=== PATIENT | female | born 1935 | race Caucasian/White ===

== ENCOUNTER 2016-08-27 07:15 | Observation (INO) | payer MEDICARE ==
--- OUTSIDE RECORDS SUMMARY | 2016-08-27 07:52 | XMS REPORT | Continuity of Care Document ---
:1935 Author Organization [facility] ([facility]) Address [address] [place] [address] Phone [phone] Care Team Providers Name Role Phone Franco Leslie Primary Care Provider [phone] Source Comments This disclosure is being made pursuant to the Care Everywhere program, applicable federal and state laws, and may not contain all informaitonavailable regarding this patient.[facility] ([facility]) Active Allergies and Adverse Reactions Allergen Noted Date Severity Reactions Comments Nsaids (Non-Steroidal 11/11/2008 High Gastrointestinal bleed Stomach bleeding Anti-Inflammatory Drug) Current Medications Prescription Sig. Disp. Refills Start Date End Date Status levothyroxine (SYNTHROID) take 75 mcg by Active 75 mcg tablet mouth daily. oxybutynin (DITROPAN) 5 Take 5 mg by mouth Active mg tablet daily. metoPROLol (LOPRESSOR) 50 Take 50 mg by mouth Active mg tablet daily. diphenoxylate-atropine take 1 Tab by mouth Active (LOMOTIL) 2.5-0.025 mg 4 times daily as per tablet needed for Diarrhea. CALCIUM CARBONATE, take by mouth 3 Active [id number], (TUMS PO) times daily. OMEPRAZOLE (PRILOSEC PO) Take 40 mg by mouth Active 2 times daily. VIT A/VIT C/VIT Take 2 Tabs by Active E/ZINC/COPPER mouth. (PRESERVISION AREDS PO) lisinopril (PRINIVIL) 5 Take 5 mg by mouth Active mg tablet daily. CYANOCOBALAMIN, VITAMIN Take by mouth. Active B-12, (VITAMIN B-12 PO) artificial tears instill 1 Drop onto Active (ARTIFICIAL TEARS) Drop both eyes as ophthalmic solution needed. FLUTICASONE PROPIONATE Use by inhalation. Active (FLUTICASONE INH) CHOLESTYRAMINE, BULK, NA Active CHOLECALCIFEROL, VITAMIN Take by mouth. Active D3, (VITAMIN D3 PO) CETIRIZINE HCL (ZYRTEC Take by mouth. Active PO) Active Problems Problem Noted Date AMD (age related macular degeneration) 02/16/2009 Overview: Formatting of this note may be different from the original. Right Eye Left Eye Time To Recurrence: Time To Recurrence: Date VA (D cc) CMT Status Procedure VA (D cc) CMT Status Procedure Cmts 09/25/07 Avastin 10/29/07 Avastin 12/03/07 Avastin 02/05/08 Avastin 04/14/08 Avastin 02/16/2009 2030-1 20/30+3 09/24/2009 2025 -1 260 20/30 +1 305 Avastin # [id number] 10/21/2009 20/25 -1 262 20/40 +2 287 Avastin #[id number] 11/23/2009 252 296 Avastin #[id number] 01/19/2010 267 Avastin #[id number] 03/29/2010 2025 -2 270 20/25 -2+1 269 Avastin #[id number] 08/02/2010 20/30 -1 254 20/25 -2 271 no injection given OU 09/15/2010 20/40 254 Avastin #[id number] 2030 +2 271 10/28/2010 20/30-2 297 Avastin #[id number] 2025-2 266 12/23/2010 20/50 263 No injection 2025 270 Avastin #[id number] 01/14/2011 268 Avastin 271 Avastin 02/11/2011 278 Avastin 266 Avastin 03/31/11 20/40-2ph+2 257 Avastin #[id number] 25-3 ph-2 263 Avastin #[id number] 06/03/2011 20/40 +2 252 20/30 +2 262 Avastin 08/05/2011 20/50 265 20/40 Avastin #[id number] 10/19/2011 20/44 -2 254 20/28 -1 257 Avastin #[id number] 08/09/2012 20/50+2 20/50 Avastin [id number] 09/21/2012 20/35-2 20/35-1 Avastin [id number] 10/26/12 20/50+1 20/40-2+1 avastin [id number] 12/21/2012 20/40 -2 20/40 -2 Avastin [id number] 01/25/2013 20/50 20/40 -1/+1 Avastin [id number] 04/18/2013 20/44+2 cc 20/35+1 cc No injection Non-Ocular Medical History: 1. Thryoid 2. Seasonal allergies 3. Gastric reflux Immunizations Name Dates Previously Given Next Due Influenza, PF 03/10/2010 Pneumococcal, unspecified 03/29/2007 Social History Tobacco Use Types Packs/Day Years Used Date Never Smoker Smokeless Tobacco: Never Used Tobacco Cessation:Counseling Given: Yes Comments: Alcohol Use Drinks/Week oz/Week Comments No Last Filed Vital Signs Vital Sign Reading Time Taken Blood Pressure 133/71 03/10/2010 8:50 AM CDT Pulse 60 03/10/2010 8:50 AM CDT Temperature 36.5 C (97.7 F) 03/10/2010 8:50 AM CDT Respiratory Rate 20 03/10/2010 8:50 AM CDT Height 1.676 m (5' 6") 03/09/2010 12:30 PM CDT Weight 72.6 kg (160 lb 0.9 oz) 03/09/2010 12:30 PM CDT Body Mass Index 25.85 03/09/2010 12:30 PM CDT Oxygen Saturation 94% 03/10/2010 8:50 AM CDT Plan of Care Health Maintenance Due Date Last Done Comments Hepatitis B Vaccine (1 of 3 - Primary Series) 1935 Tdap Vaccine 02/12/1946 Td Vaccine 02/12/1954 Colonoscopy 02/12/1986 Zoster Vaccine 1996 Osteoporosis Screening (DXA Bone Density) 02/12/2001 Pneumococcal Vaccine (1 of 2 - PCV13) 02/12/2001 Lipid Disorder Screening 03/10/2015 03/10/2010 Influenza Vaccine: Seasonal (#1) 12/28/2015 03/10/2010 Results from Last 3 Months Not on file
[2016-08-27] MEDS ORDERED: MORPHINE SULFATE 2 MG/ML DISP.SYRIN IV ONE ×2 (08:03→10:30)
[2016-08-27] MEDS ORDERED: MORPHINE SULFATE 2 MG/ML DISP.SYRIN ONE ×2 (08:05→10:33)
--- NOTE | 2016-08-27 08:19 | ERNOTE ---
<Sanjay Khan - Last Filed: 08/27/16 11:23> Abdominal HPI - General Chief Complaint: Abdominal Pain Time Seen by Provider: 08/27/16 07:43 - Immun/Allergies/Home Medications Immunizatons: IMMUNIZATION HX Immunizations Up to Date Yes History of Influenza Vaccine Yes Hx Pneumococcal Vaccination Yes Allergies/Adverse Reactions: Allergies NSAIDS (Non-Steroidal Anti-Inflamma Allergy (Intermediate, Verified 08/27/16 15: 48) BLEEDING ULCERS lactose Allergy (Unknown, Verified 08/27/16 15:48) alendronate sodium [From Fosamax] Adverse Reaction (Mild, Verified 08/27/16 15: 48) REFLUX Cat/Feline Produc *RETIRED-12/31/12 [Cat/Feline Product Derivatives] Adverse Reaction (Mild, Verified 08/27/16 15:48) RHINITIS cefixime [From Suprax] Adverse Reaction (Mild, Verified 08/27/16 15:48) Diarrhea niacin Adverse Reaction (Mild, Verified 08/27/16 15:48) Other rash astemizole [From Hismanal] Adverse Reaction (Verified 08/27/16 15:48) JUST DOESNT WORK Home Medications: HOME MEDICATIONS Acetaminophen [Tylenol Extra Strength] 1,000 mg PO Q8H PRN 04/04/12 [Last Taken Unknown] Fluticasone Propionate [Flonase] 1 inh NS BID 04/04/12 [Last Taken Unknown] Levothyroxine Sodium 75 mcg PO DAILY 04/04/12 [Last Taken Unknown] Lisinopril 5 mg PO DAILY 04/04/12 [Last Taken Unknown] Metoprolol Succinate 50 mg PO HS 04/04/12 [Last Taken Unknown] Oxybutynin Chloride 5 mg PO DAILY 04/04/12 [Last Taken Unknown] Cholecalciferol (Vitamin D3) [Vitamin D3] 2,000 unit PO DAILY 07/29/13 [Last Taken Unknown] Cholestyramine (with Sugar) [Questran Packet] 4 gm PO DAILY PRN 07/29/13 [Last Taken Unknown] Famotidine [Pepcid AC] 20 mg PO BID 07/29/13 [Last Taken Unknown] Calcium Carbonate [Tums] 300 mg PO DAILY 10/06/15 [Last Taken Unknown] Cetirizine HCl [Zyrtec] 10 mg PO DAILY 10/06/15 [Last Taken Unknown] Vit A/Vit C/Vit E/Zinc/Copper [Preservision Areds Tablet] 2 each PO BID [Last Taken Unknown] ED Progress - Results and Orders Patient's Lab Results:: I have reviewed the patient's lab results. - Vital Signs Patient's Vital Signs:: I have reviewed the patient's vital signs. Vital Signs: Vital Signs 08/27/16 08/27/16 08/27/16 07:18 08:26 08:59 Temperature 36.8 C Pulse Rate 78 78 75 Respiratory 15 15 15 Rate Blood Pressure 137/68 111/59 117/53 O2 Sat by Pulse 96 94 96 Oximetry 08/27/16 08/27/16 09:37 10:50 Temperature 37.4 C Pulse Rate 73 83 Respiratory 16 15 Rate Blood Pressure 120/56 116/59 O2 Sat by Pulse 98 98 Oximetry - CT/Ultrasound CT/Ultrasound Narrative: The radiologist called me about her CT scan results. She has acute appendicitis. I discussed this with her and her, and will refer, with their ok. to Dr Gordon, general surgery. I called Dr. Gordon who said he would come to see the patient. - Progress/Reassessment Chief Complaint: Abdominal Pain Departure - Departure Clinical Impression: Appendicitis Qualifiers: Appendicitis type: acute appendicitis Acute appendicitis type: with localized peritonitis Qualified Code(s): K35.3 - Acute appendicitis with localized peritonitis Disposition: [facility] Condition: Good <Sravan Guerrero - Last Filed: 08/28/16 03:30> Abdominal HPI - Narrative Date of Service: 08/27/16 - General Source: patient, family - Immun/Allergies/Home Medications Immunizatons: IMMUNIZATION HX Immunizations Up to Date Yes History of Influenza Vaccine Yes Hx Pneumococcal Vaccination Yes - History of Present Illness Narrative: DIARRHEA AND LOWER ABDOMINAL CRAMPING SINCE YESTERDAY. NO VOMITING , NO FEVER BUT FELT COLD LAST NIGHT WITH NO SHIVERING. . NO UTI SX KNOWN. HER DIARRHEA ACTUALLY CONSISTS OF ONLY 1 LOOSE STOOL LAST NIGHT. THE ONLY DIFFERENT IS SHE HAD SOME BLACK JELLY BEANS THE NIGHT BEFORE. OTHER THAN THAT SHE ATE THE SAME EVERYONE AND HAS NO KNOWN CONTACTS. SHE STATES SHE IS LACTOSE INTOLERANCE AND HAS OCC. CRAMPS AND LOOSE STOOLS FROM THAT. SHE DID TAKE TWO IMMODIUM AFTER THE 1 LOOSE STOOL AND THE CRAMPS DID GET WORSE AFTERWARDS. SHE ATE HOT DOG AND CHIPS AT 1700 AFTER HER SYMPTOMS STARTED BUT NOTHING THIS A.M. Review of Systems - Review of Systems Constitutional: Present: See HPI EYE: Present: no symptoms reported ENT: Present: no symptoms reported Respiratory: Present: no symptoms reported Cardiology: Present: no symptoms reported Gastrointestinal/Abdominal: Present: See HPI Genitourinary: Present: no symptoms reported Musculoskeletal: Present: no symptoms reported Skin: Present: no symptoms reported Neurological: Present: no symptoms reported Endocrine: Present: no symptoms reported Hematologic/Lymphatic: Present: no symptoms reported Psych: Present: no symptoms reported All Other Systems: All systems neg except as marked - Patient's Past Medical History Patient History - Medical: Arthritis, GERD, Hypothyroidism, Other Patient History - Cardiac/Respiratory: Hyperlipidemia, Other Patient History - Cancer: No Hx of Cancer Patient History - Surgical Procedures: Cholecystectomy, Colonoscopy, D & C, EGD , Total Hip Replacement, Other Patient History - Other: None - Family History Father Family History - Medical: , No pertinent hx Family History - Cardiac/Respiratory: Myocardial Infarction Mother Family History - Medical: , No pertinent hx Family History - Cardiac/Respiratory: CVA/Stroke, Hypertension - Social History Living Situations: spouse Abuse History: No History of abuse Psych History: No pertinent hx Smoking Status: Never smoker Do you dip or chew tobacco: No Alcohol Use: none Drug Use: none - Immunizations Immunizations Up to Date: Yes Hx Pneumococcal Vaccination: Yes History of Influenza Vaccine: Yes Physical Exam - Physical Exam General Appearance: Present: wd/wn, alert, mild distress Respiratory: Present: no respiratory distress, normal breath sounds, no accessory muscle use, chest nontender, lungs clear Cardiovascular/Chest: Present: regular rate, rhythm, no murmur, normal peripheral pulses Peripheral Pulses: N=norm/S=strong/W=weak/B=bound/A=absent: Dorsalis-pedis (R): Normal, Dorsalis-pedis (L): Normal Gastrointestinal/Abdominal: Present: normal bowel sounds, nondistended, no organomegaly, tenderness - TO RIGHT LATERAL AND RIGHT LOWER ABD WITH WHAT FEELS LIKE A DISTENDED LOOP OF BOWEL WITH GUARDING AND MILD REBOUND IN RLQ. Extremity Exam: Present: normal inspection Neurological Exam: Present: alert, oriented Skin Exam: Present: normal color ED Progress - Results and Orders Results and Orders: LABS NOT DONE WHEN I SIGNED OFF TO DR MARTINEZ - Vital Signs Patient's Vital Signs:: I have reviewed the patient's vital signs. Vital Signs: Vital Signs 08/27/16 07:18 Temperature 36.8 C Pulse Rate 78 Respiratory 15 Rate Blood Pressure 137/68 O2 Sat by Pulse 96 Oximetry - Transfer of Care Physician Sign Out: Sravan Guerrero Receiving Physician: Sanjay Khan Pending Results: CT/MRI results, Labs, Pain-control Expected Disposition: Discharge
[2016-08-27] MEDS: NORMAL SALINE 1,000 ML IV PRN ×2 (08:20→08:25)
[2016-08-27 08:21] LABS: Hematocrit 41.6 % (37.0-47.0); Hemoglobin 13.6 gm/dL (12.5-16.0); Mean Cell Volume 87.8 fl (78-100); Mean Corpuscular Hemoglobin 28.7 pg (27-31); Mean Corpuscular Hgb Conc 32.7 g/dl (32-36); Mean Platelet Volume 9.5 fl (6.0-9.5); Neutrophil # 15.6 K/mm3 (1.3-6.0); Neutrophil % 82.5 % (42-75.0); Platelet Count 223 K/mm3 (150-450); Red Blood Count 4.74 M/mm3 (4.2-5.4); White Blood Count 18.9 K/mm3 (4.0-10.5)
[2016-08-27 08:34] LABS: Urine Bilirubin Negative (NEGATIVE); Urine Blood Negative /ul (NEGATIVE); Urine Ketone Negative (NEGATIVE); Urine Nitrite Negative (NEGATIVE); Urine Protein Negative (NEGATIVE); Urine Specific Gravity 1.015 SP.GR. (1.005-1.010); Urine Urobilinogen Normal (NORMAL)
[2016-08-27 08:43] LABS: Albumin * 3.4 gm/dl (3.4-5.0); Anion Gap 15.7 mmol/L (6.8-13.8); Bilirubin, Total 0.7 mg/dL (0.0-1.1); CRP 6.6 mg/dL (0.0-0.9); Ca. Corrected For Albumin 8.5 mg/dL (8.4-10.2); Calcium * 8.3 mg/dL (7.9-10.9); Carbon Dioxide 26.2 mmol/L (24-32.6); Potassium 3.9 mmol/L (3.4-4.6); Total Protein 6.9 gm/dL (6.2-8.2)
[2016-08-27 08:44] LABS: Urine Appearance Clear; Urine Bacteria None Seen; Urine Color Yellow; Urine RBC None Seen /hpf (0-5); Urine WBC None Seen /hpf (0-5)
[2016-08-27] MEDS ORDERED: DIATRIZOATE MEGLU/DIATRIZO SOD 30 ML BTL PO ONE (08:48)
[2016-08-27] MEDS ORDERED: DIATRIZOATE MEGLU/DIATRIZO SOD 30 ML BTL ONE (08:49)
[2016-08-27] MEDS ORDERED: CEFOXITIN SODIUM 2 GM in DEXTROSE 5 % IN WATER 100 ML IV PRN ×2 (12:00)
--- OUTSIDE RECORDS SUMMARY | 2016-08-27 12:01 | XMS REPORT | Continuity of Care Document ---
:1935 Author Organization [facility] ([facility]) Address [address] [place] [address] Phone [phone] Care Team Providers Name Role Phone Franco Leslie Primary Care Provider [phone] Source Comments This disclosure is being made pursuant to the Care Everywhere program, applicable federal and state laws, and may not contain all informaitonavailable regarding this patient.[facility] ([facility]) Active Allergies and Adverse Reactions Allergen Noted [...] CALCIUM CARBONATE, take by mouth 3 Active [id number], (TUMS PO) times daily. OMEPRAZOLE (PRILOSEC PO) [...] -1 260 20/30 +1 305 Avastin # [id number] 10/21/2009 20/25 -1 262 20/40 +2 287 Avastin #[id number] 11/23/2009 252 296 Avastin #[id number] 01/19/2010 267 Avastin #[id number] 03/29/2010 2025 -2 270 20/25 -2+1 269 Avastin #[id number] 08/02/2010 20/30 -1 254 20/25 -2 271 no injection given OU 09/15/2010 20/40 254 Avastin #[id number] 2030 +2 271 10/28/2010 20/30-2 297 Avastin #[id number] 2025-2 266 12/23/2010 20/50 263 No injection 2025 270 Avastin #[id number] 01/14/2011 268 Avastin 271 Avastin 02/11/2011 278 Avastin 266 Avastin 03/31/11 20/40-2ph+2 257 Avastin #[id number] 25-3 ph-2 263 Avastin #[id number] 06/03/2011 20/40 +2 252 20/30 +2 262 Avastin 08/05/2011 20/50 265 20/40 Avastin #[id number] 10/19/2011 20/44 -2 254 20/28 -1 257 Avastin #[id number] 08/09/2012 20/50+2 20/50 Avastin [id number] 09/21/2012 20/35-2 20/35-1 Avastin [id number] 10/26/12 20/50+1 20/40-2+1 avastin [id number] 12/21/2012 20/40 -2 20/40 -2 Avastin [id number] 01/25/2013 20/50 20/40 -1/+1 Avastin [id number] 04/18/2013 20/44+2 cc 20/35+1 cc No injection [...]
--- NOTE | 2016-08-27 12:13 | HP ---
Chief Complaint - Chief Complaint Date of Service: 08/27/16 Time of Service: 12:03 Chief Complaint: abdominal pain, acute appendicitis History of Present Illness: Started having cramping across lower abdomen and diarrhea yesterday afternoon. Pain continued and moved to [facility]. Slept in recliner. Presented to ER and has acute appendicitis on CT scan. - Patient's Past Medical History Patient History - Medical: Arthritis, GERD, Hypothyroidism, Other Patient History - Cardiac/Respiratory: Hyperlipidemia, Other Patient History - Cancer: No Hx of Cancer Patient History - Surgical Procedures: Cholecystectomy, Colonoscopy, D & C, EGD , Total Hip Replacement, Other Patient History - Other: None - Family History Father Family History - Medical: , No pertinent hx Family History - Cardiac/Respiratory: Myocardial Infarction Mother Family History - Medical: , No pertinent hx Family History - Cardiac/Respiratory: CVA/Stroke, Hypertension - Social History Living Situations: spouse Abuse History: No History of abuse Psych History: No pertinent hx Smoking Status: Never smoker Do you dip or chew tobacco: No Alcohol Use: none Drug Use: none - Immunizations Immunizations Up to Date: Yes Hx Pneumococcal Vaccination: Yes History of Influenza Vaccine: Yes Review Of Systems (GEN) - Review of Systems Generalized/Overall Review: Absent: Chills, Fever EENTM: Present: No Symptoms Reported Respiratory: Present: No Symptoms Reported Cardiac: Present: No Symptoms Reported. Absent: Chest Pain Abdominal: Present: Abdominal Pain, Other - hurts to move Genitourinary: Present: No Symptoms Reported Musculoskeletal: Present: No Symptoms Reported Neurological: Present: No Symptoms Reported Skin: Present: No Symptoms Reported Immunizations: IMMUNIZATION HX Immunizations Up to Date Yes History of Influenza Vaccine Yes Hx Pneumococcal Vaccination Yes Allergies/Adverse Reactions: Allergies Allergy/AdvReac Type Severity Reaction Status Date / Time NSAIDS (Non-Steroidal Allergy Intermediate BLEEDING Verified 08/27/16 07:26 Anti-Inflamma ULCERS lactose Allergy Unknown Verified 08/27/16 07:26 alendronate sodium AdvReac Mild REFLUX Verified 08/27/16 07:26 [From Fosamax] Cat/Feline Produc AdvReac Mild RHINITIS Verified 08/27/16 07:26 *RETIRED-12/31/12 [Cat/Feline Product Derivatives] cefixime [From Suprax] AdvReac Mild Diarrhea Verified 08/27/16 07:26 niacin AdvReac Mild Other Verified 08/27/16 07:26 astemizole [From [facility]] AdvReac JUST Verified 08/27/16 07:26 DOESNT WORK Home Medications: HOME MEDICATIONS Acetaminophen [Tylenol Extra Strength] 1,000 mg PO Q8H PRN 04/04/12 [Last Taken Unknown] Fluticasone Propionate [Flonase] 1 inh NS BID 04/04/12 [Last Taken Unknown] Levothyroxine Sodium 75 mcg PO DAILY 04/04/12 [Last Taken Unknown] Lisinopril 5 mg PO DAILY 04/04/12 [Last Taken Unknown] Metoprolol Succinate 50 mg PO HS 04/04/12 [Last Taken Unknown] Oxybutynin Chloride 5 mg PO DAILY 04/04/12 [Last Taken Unknown] Cholecalciferol (Vitamin D3) [Vitamin D3] 2,000 unit PO DAILY 07/29/13 [Last Taken Unknown] Cholestyramine (with Sugar) [Questran Packet] 4 gm PO DAILY PRN 07/29/13 [Last Taken Unknown] Famotidine [Pepcid AC] 20 mg PO BID 07/29/13 [Last Taken Unknown] Calcium Carbonate [Tums] 300 mg PO DAILY 10/06/15 [Last Taken Unknown] Cetirizine HCl [Zyrtec] 10 mg PO DAILY 10/06/15 [Last Taken Unknown] Vit A/Vit C/Vit E/Zinc/Copper [Preservision Areds Tablet] 2 each PO BID [Last Taken Unknown] Exam - Exam Vital Signs: Vital Signs - Last Taken Temp 37.4 C 08/27/16 10:50 Pulse 91 08/27/16 11:41 Resp 15 08/27/16 10:50 BP 130/69 08/27/16 11:41 Pulse Ox 98 08/27/16 11:41 Constitutional: Present: Alert, Oriented x3, Cooperative, Mild distress ENT Exam: Present: normal ENT inspection Eye Exam: bilateral eye: normal inspection Neck: Present: full range of motion, normal inspection Back Exam: Present: normal inspection Breasts: Present: Exam deferred Respiratory: Present: lungs clear, normal breath sounds Cardiovascular/Chest: Present: normal peripheral pulses, regular rate, rhythm Peripheral Pulses: carotid (R): 4+, carotid (L): 4+, dorsalis-pedis (R): 4+, dorsalis-pedis (L): 4+ Abdomen: Present: other - RLQ tenderness with rebound /Rectal: Present: Exam deferred Extremity: Present: normal range of motion, normal inspection, no pedal edema, no calf tenderness, normal capillary refill Skin Exam: Present: pallor Neurologic: Present: book mender II-XII nml as tested, normal cerebellar test, no motor/ sensory deficits Appearance: Present: appropriate appearance, appropriate insight Eye contact: Present: cooperative, good eye contact, normal speech Thoughts: Present: normal thought pattern Diagnostic Studies: Abnormal Lab Results 08/27/16 08/27/16 Range/Units 08:15 08:15 WBC 18.9 H (4.0-10.5) K/mm3 Immature Gran % (Auto) 0.50 H (0.001-0.429) % Immature Gran # (Auto) 0.09 H (0.000-0.0310) K/mm3 Neutrophils % 82.5 H (42-75.0) % Lymphocytes % 9.7 L (20-51) % Neutrophils # 15.6 H (1.3-6.0) K/mm3 Monocytes # 1.3 H (0.0-1.0) k/mm3 Anion Gap 15.7 H (6.8-13.8) mmol/L Random Glucose 113 H (70-110) mg/dL C-Reactive Prot, Quant 6.6 H (0.0-0.9) mg/dL Laboratory Results WBC 18.9 K/mm3 (4.0-10.5) H 08/27/16 08:15 RBC 4.74 M/mm3 (4.2-5.4) 08/27/16 08:15 Hgb 13.6 gm/dL (12.5-16.0) 08/27/16 08:15 Hct 41.6 % (37.0-47.0) 08/27/16 08:15 MCV 87.8 fl (78-100) 08/27/16 08:15 MCH 28.7 pg (27-31) 08/27/16 08:15 MCHC 32.7 g/dl (32-36) 08/27/16 08:15 RDW 13.0 % (11.5-14.0) 08/27/16 08:15 Plt Count 223 K/mm3 (150-450) 08/27/16 08:15 MPV 9.5 fl (6.0-9.5) 08/27/16 08:15 Immature Gran % (Auto) 0.50 % (0.001-0.429) H 08/27/16 08:15 Immature Gran # (Auto) 0.09 K/mm3 (0.000-0.0310) H 08/27/16 08:15 Neutrophils % 82.5 % (42-75.0) H 08/27/16 08:15 Lymphocytes % 9.7 % (20-51) L 08/27/16 08:15 Monocytes % 7.0 % (0.0-9) 08/27/16 08:15 Eosinophils % 0.1 % (0.0-3.0) 08/27/16 08:15 Basophils % 0.2 % (0.0-1.0) 08/27/16 08:15 Nucleated RBC % 0.0 k/mm3 (0-1) 08/27/16 08:15 Neutrophils # 15.6 K/mm3 (1.3-6.0) H 08/27/16 08:15 Lymphocytes # 1.8 k/mm3 (1.5-3.5) 08/27/16 08:15 Monocytes # 1.3 k/mm3 (0.0-1.0) H 08/27/16 08:15 Eosinophils # 0.0 k/mm3 (0.0-0.7) 08/27/16 08:15 Absolute Basophils 0.0 k/mm3 (0.0-0.1) 08/27/16 08:15 Sodium 141 mmol/L (132-142) 08/27/16 08:15 Plasma Sodium 141 mmol/L (130-142) 08/27/16 08:15 Potassium 3.9 mmol/L (3.4-4.6) 08/27/16 08:15 Chloride 103 mmol/L (97-106) 08/27/16 08:15 Carbon Dioxide 26.2 mmol/L (24-32.6) 08/27/16 08:15 Anion Gap 15.7 mmol/L (6.8-13.8) H 08/27/16 08:15 BUN 15 mg/dL (3-23) 08/27/16 08:15 Creatinine 0.94 mg/dL (0.4-1.4) 08/27/16 08:15 Est GFR (Non-Af Amer) 61 mL/min (60-130) 08/27/16 08:15 BUN/Creatinine Ratio 16.0 (9.0-21.6) 08/27/16 08:15 Random Glucose 113 mg/dL (70-110) H 08/27/16 08:15 Calcium 8.3 mg/dL (7.9-10.9) 08/27/16 08:15 Calcium Adj for Albumin 8.5 mg/dL (8.4-10.2) 08/27/16 08:15 Total Bilirubin 0.7 mg/dL (0.0-1.1) 08/27/16 08:15 AST 14 U/L (0-48) 08/27/16 08:15 ALT 20 U/L (19-67) 08/27/16 08:15 Alkaline Phosphatase 66 U/L (50-170) 08/27/16 08:15 C-Reactive Prot, Quant 6.6 mg/dL (0.0-0.9) H 08/27/16 08:15 Total Protein 6.9 gm/dL (6.2-8.2) 08/27/16 08:15 Albumin 3.4 gm/dl (3.4-5.0) 08/27/16 08:15 Amylase 25 U/L (25-115) 08/27/16 08:15 Lipase 91 U/L (73-393) 08/27/16 08:15 Urine Color Yellow 08/27/16 08:27 Urine Appearance Clear 08/27/16 08:27 Urine pH 7.0 pH (5.0-7.0) 08/27/16 08:27 Ur Specific Mart 1.015 SP.GR. (1.005-1.010) 08/27/16 08:27 Urine Protein Negative mg/dL (NEGATIVE) 08/27/16 08:27 Urine Glucose (UA) Negative mg/dL (NEGATIVE) 08/27/16 08:27 Urine Ketones Negative mg/dL (NEGATIVE) 08/27/16 08:27 Urine Blood Negative /ul (NEGATIVE) 08/27/16 08:27 Urine Nitrate Negative (NEGATIVE) 08/27/16 08:27 Urine Bilirubin Negative mg/dl (NEGATIVE) 08/27/16 08:27 Urine Urobilinogen Normal EU/dl (NORMAL) 08/27/16 08:27 Ur Leukocyte Esterase Negative /ul (NEGATIVE) 08/27/16 08:27 Urine RBC None seen /hpf (0-5) 08/27/16 08:27 Urine WBC None seen /hpf (0-5) 08/27/16 08:27 Ur Epithelial Cells None seen /hpf (0-5) 08/27/16 08:27 Urine Bacteria None seen (NONE) 08/27/16 08:27 Urine Culture Comments No culture indicated 08/27/16 08:27 CT scan shows acute appendicitis Assessment/Plan - Assessment/Plan (1) Appendicitis Assessment: Explained appendectomy (laparoscopic or open) including risks, complications and expeted hospital course. After an interactive discussion her questions were answered to her apparent satisfaction and informed consent obtained for appendectomy. Chlorhexidine wipes, SCD's and IV Mefoxin pre-op. She was seen by Dr Bahena on 08/19/16 and that note imported as well. Problem: Acute Qualifiers: Appendicitis type: acute appendicitis Acute appendicitis type: with localized peritonitis Qualified Code(s): K35.3 - Acute appendicitis with localized peritonitis
[2016-08-27] MEDS ORDERED: NORMAL SALINE 1,000 ML IV ONE (13:05)
[2016-08-27] MEDS ORDERED: BUPIVACAINE HCL/EPINEPHRINE 50 ML VIAL IJ ONE ×2 (13:25)
[2016-08-27] MEDS ORDERED: RINGERS SOLUTION,LACTATED 1,000 ML IV ONE (13:35)
[2016-08-27] MEDS ORDERED: MUPIROCIN 22 APPL TUBE TP ONE (14:45)
[2016-08-27] MEDS ORDERED: ONDANSETRON HCL/PF 2 MG/ML VIAL IV PRN (14:59)
--- NOTE | 2016-08-27 15:08 | OR ---
Operative Report - Dictated Report Narrative: OPERATIVE REPORT DATE OF OPERATION: 08/27/2016 PREOPERATIVE DIAGNOSIS: Acute appendicitis POSTOPERATIVE DIAGNOSIS: Severe acute appendicitis OPERATION: Laparoscopic appendectomy SURGEON: Lewis Gordon MD ANESTHESIA: Gen. endotracheal Kirby Wilkins CRNA INDICATIONS FOR PROCEDURE: The patient is an 81-year-old female who presented to the emergency room with a one-day history of abdominal pain which had migrated to the right lower quadrant. CT scan shows findings compatible with acute appendicitis FINDINGS: Severe acute appendicitis NARRATIVE OF PROCEDURE: The patient was identified in the holding area, and prior to the administration of anesthetic a multidisciplinary timeout was observed. The patient was placed supine, SCDs were applied, and 2 g of intravenous Mefoxin administered. Gen. endotracheal anesthetic was administered. The patient's abdomen was prepped with Betadine solution and a generous operating field isolated with 4 sterile towels. The remainder the patient was covered with a sterile disposable drape. A transverse infraumbilical skin incision was made. Dissection was carried along the umbilical stalk until the fascia of the linea alba was encountered. This was incised. The peritoneum was then elevated and incised to allow entry into the abdomen under direct vision. A Thorpe cannula was placed and the abdomen insufflated with CO2. The laparoscopic camera was introduced and the abdomen briefly explored. Those portions of the liver, omentum, small and large intestine visualized appeared normal. The appendix was not immediately visible. There was a small amount of clear green fluid in the pelvis. Under direct vision 2 additional working ports were inserted through separate skin incisions, one suprapubically and one in the left lower quadrant. The apex of the cecum was grasped and retracted. The appendiceal base was located. The inflamed appendix was located lateral to the cecum. There was intense inflammation. Gradually the appendix was liberated by a combination of blunt and electrocautery dissection until it could be elevated. The base of the appendix and mesoappendix was then transected with a laparoscopic HERRERA stapling device. The the stump of the appendix was seen to be gas and liquid tight and hemostatic. The mesoappendix appeared hemostatic. The appendix was placed in an Endobag and parked in the right lower quadrant. The right lower quadrant and pelvis were suctioned clean. The smaller working ports were then withdrawn under direct vision to ensure entry site hemostasis. The appendix was withdrawn in conjunction with the Thorpe cannula. The pneumoperitoneum was allowed to escape, and after receiving a correct sponge needle and instrument count attention was turned to closing the abdomen. The fascia and peritoneum were approximated with interrupted sutures of #1 Vicryl. Skin incisions were approximated with interrupted vertical mattress sutures of 4-0 nylon. The operative sites were washed and dried. Dressings of Bactroban ointment and large Band-Aids were applied to the small port sites. The umbilical incision was dressed with Bactroban ointment , 2 x 2, large Band-Aid and Medipore tape. The operative procedure was terminated at this point. The patient tolerated the anesthetic and procedure well without complication. There was no measurable blood loss. The appendix was submitted to pathology. 0.5% Marcaine with epinephrine was used for local anesthetic infiltration. The patient was transferred to the recovery room awake, extubated, and in stable condition. Reviewed and electronically signed
[2016-08-27] MEDS ORDERED: MORPHINE SULFATE 2 MG/ML DISP.SYRIN IV PRN (15:14)
--- OUTSIDE RECORDS SUMMARY | 2016-08-27 15:23 | XMS REPORT | Continuity of Care Document ---
:1935 Author Organization [facility] ([facility]) Address [address] [place] [address] Phone [phone] Care Team Providers Name Role Phone Franco Leslie Primary Care Provider [phone] Source Comments This disclosure is being made pursuant to the Care Everywhere program, applicable federal and state laws, and may not contain all informaitonavailable regarding this patient.[facility] ([facility]) Active Allergies and Adverse Reactions Allergen Noted [...] CALCIUM CARBONATE, take by mouth 3 Active [id number], (TUMS PO) times daily. OMEPRAZOLE (PRILOSEC PO) [...] -1 260 20/30 +1 305 Avastin # [id number] 10/21/2009 20/25 -1 262 20/40 +2 287 Avastin #[id number] 11/23/2009 252 296 Avastin #[id number] 01/19/2010 267 Avastin #[id number] 03/29/2010 2025 -2 270 20/25 -2+1 269 Avastin #[id number] 08/02/2010 20/30 -1 254 20/25 -2 271 no injection given OU 09/15/2010 20/40 254 Avastin #[id number] 2030 +2 271 10/28/2010 20/30-2 297 Avastin #[id number] 2025-2 266 12/23/2010 20/50 263 No injection 2025 270 Avastin #[id number] 01/14/2011 268 Avastin 271 Avastin 02/11/2011 278 Avastin 266 Avastin 03/31/11 20/40-2ph+2 257 Avastin #[id number] 25-3 ph-2 263 Avastin #[id number] 06/03/2011 20/40 +2 252 20/30 +2 262 Avastin 08/05/2011 20/50 265 20/40 Avastin #[id number] 10/19/2011 20/44 -2 254 20/28 -1 257 Avastin #[id number] 08/09/2012 20/50+2 20/50 Avastin [id number] 09/21/2012 20/35-2 20/35-1 Avastin [id number] 10/26/12 20/50+1 20/40-2+1 avastin [id number] 12/21/2012 20/40 -2 20/40 -2 Avastin [id number] 01/25/2013 20/50 20/40 -1/+1 Avastin [id number] 04/18/2013 20/44+2 cc 20/35+1 cc No injection [...]
[2016-08-27] MEDS: PANTOPRAZOLE SODIUM 40 MG in NORMAL SALINE 100 ML IV SCH (15:58)
[2016-08-27] MEDS: RINGERS SOLUTION,LACTATED 1,000 ML IV PRN (15:59)
[2016-08-27] MEDS: CEFOXITIN SODIUM 2 GM in DEXTROSE 5 % IN WATER 100 ML IV SCH ×4 (16:27→20:09)
[2016-08-27] MEDS: oxyCODONE HCL/ACETAMINOPHEN 1 TAB TABLET PO PRN (19:24)
[2016-08-27] MEDS ORDERED: METOPROLOL SUCCINATE 50 MG TABLET.SA PO SCH (21:00)
[2016-08-28] MEDS: oxyCODONE HCL/ACETAMINOPHEN 1 TAB TABLET PO PRN ×5 (00:18→17:49)
[2016-08-28] MEDS: RINGERS SOLUTION,LACTATED 1,000 ML IV PRN (01:59)
[2016-08-28] MEDS: CEFOXITIN SODIUM 2 GM in DEXTROSE 5 % IN WATER 100 ML IV SCH ×2 (03:26)
[2016-08-28] MEDS ORDERED: LEVOTHYROXINE SODIUM 75 MCG TABLET PO SCH (07:00)
[2016-08-28] MEDS ORDERED: LISINOPRIL 5 MG TABLET PO SCH (09:00)
[2016-08-28] MEDS: PANTOPRAZOLE SODIUM 40 MG in NORMAL SALINE 100 ML IV SCH (14:00)
[2016-08-28 14:25] VITALS: BP 100/49
--- NOTE | 2016-08-28 18:31 | DS ---
(1) Appendicitis Problem: Acute Qualifiers: Appendicitis type: acute appendicitis Acute appendicitis type: with localized peritonitis Qualified Code(s): K35.3 - Acute appendicitis with localized peritonitis Description of Stay: Underwent uneventful laparoscopic appendectomy for severe acute appendicitis. Chlorhexidine wipes, pre and post-op IV Mefoxin. SCD's and early ambulation for VTE prophylaxis. VS remained normal. Presenting pain resolved and incisional discomfort controlled with po Percocet. Tolerated po intake, dressings dry, ambulated without assistance. Procedures Performed: see notes below - laparoscopic appendectomy Discharge Disposition: Home self care Disposition: Home self-care Condition: Good Discharge Activity: Activity as tolerated, No Lifting Discharge Diet: General/regular food Referrals: Jenifer Bahena MD [Primary Care Provider] - Problem Oriented Discharge Instructions to Patient/Family: Laparoscopic Appendectomy, Adult Additional Patient Instructions (free text): To call office [phone] tomorrow to arrange f/u apt in 7-10 days. Complete Home Medications List: Complete Home Medication List: Acetaminophen [Tylenol Extra Strength] 1,000 mg PO Q8H PRN 04/04/12 Fluticasone Propionate [Flonase] 1 inh NS BID 04/04/12 Levothyroxine Sodium 75 mcg PO DAILY 04/04/12 Lisinopril 5 mg PO DAILY 04/04/12 Metoprolol Succinate 50 mg PO HS 04/04/12 Oxybutynin Chloride 5 mg PO DAILY 04/04/12 Cholecalciferol (Vitamin D3) [Vitamin D3] 2,000 unit PO DAILY 07/29/13 Cholestyramine (with Sugar) [Questran Packet] 4 gm PO DAILY PRN 07/29/13 Famotidine [Pepcid AC] 20 mg PO BID 07/29/13 Calcium Carbonate [Tums] 300 mg PO DAILY 10/06/15 Cetirizine HCl [Zyrtec] 10 mg PO DAILY 10/06/15 Vit A/Vit C/Vit E/Zinc/Copper [Preservision Areds Tablet] 2 each PO BID oxyCODONE HCL/ACETAMINOPHEN [Percocet 5 MG/325 MG] 1 tab PO Q4H PRN #0 tablet
== END 2016-08-28 19:30 | disposition home or self-care (01) ==
LOC: ER 07:15 → AMB 11:56 → MS 15:20
PROVIDERS: ADMIT Surgery; ATTEND Surgery
PROC: 0DTJ4ZZ Resection of Appendix, Percutaneous Endoscopic Approach (ICD-10-PCS; principal; 2016-08-27 12:09)
DX: K35.80 Unspecified acute appendicitis (principal); E03.9 Hypothyroidism, unspecified; K21.9 Gastro-esophageal reflux disease without esophagitis; M19.90 Unspecified osteoarthritis, unspecified site
CPT/HCPCS: 36415; 44970; 74177; 80053; 81001; 82150; 83690; 85025; 86140; 88304; 96365; 96367; 96374; 96375; 99284; G0378